=== PATIENT | female | born 1980 | race Caucasian/White ===

== ENCOUNTER 2016-07-07 00:20 | Emergency (ER) | payer SELFPAY ==
[~2016-07-07] VITALS: Ht 160 cm; Wt 80.7 kg
[~2016-07-07 00:20] MED LIST: PRENATAL1 TA1 PO; TYLENOL EXTRA500 M2 PO; [UNRECOGNIZED DRUG - OTHER] PO
[2016-07-07 00:33] VITALS: BP 102/72
--- NOTE | 2016-07-07 00:43 | NUR ---
TO ER BED 6
--- NOTE | 2016-07-07 00:58 | NUR ---
36Y F BIB SPOUSE C/O OF ANXIETY X3 DAYS. PT STATES SHE FEELS ANXIOUS WITH NO APPARENT REASON. SHE CLAIMS SHE FEEL CONFUSED TOO AT TIMES. V/S WNL. NO DISTRESS NOTED.
--- NOTE | 2016-07-07 01:18 | NUR ---
Patient being evaluated by physician at bedside.
[2016-07-07] MEDS ORDERED: LORazepam 1 MG TAB PO ONE (01:20)
--- NOTE | 2016-07-07 02:30 | NUR ---
PT STATES SHE FEELS BETTER NOW AFTER SHE TOOK A DOSE OF ATIVAN 1MG PO[address] CASEY.
--- NOTE | 2016-07-07 02:55 | NUR ---
Patient discharged with v/s stable. Written and verbal after care instructions given and explained BY DR CASEY. Patient alert, oriented and verbalized understanding of instructions. Ambulatory with steady gait. All questions addressed prior to discharge. ID band removed. Patient advised to follow up with PMD. Rx of ATIVAN given. Patient educated on indication of medication including possible reaction and side effects. Opportunity to ask questions provided and answered.
[2016-07-07 03:00] VITALS: BP 110/70
== END 2016-07-07 02:55 | disposition home or self-care (01) ==
LOC: MED 00:20
DX: F41.0 Panic disorder [episodic paroxysmal anxiety] (principal); Z88.0 Allergy status to penicillin

== ENCOUNTER 2016-08-09 07:44 | Emergency (ER) | payer SELFPAY ==
[~2016-08-09] VITALS: Ht 160 cm; Wt 83.5 kg
[~2016-08-09 07:44] MED LIST changes: +ACET500C94 PO; +PREN-234 PO; -PRENATAL1 TA1 PO; -TYLENOL EXTRA500 M2 PO; +[UNRECOGNIZED DRUG - CODE] PO; -[UNRECOGNIZED DRUG - OTHER] PO
--- NOTE | 2016-08-09 07:50 | NUR ---
PT AMBULATED TO BED 3
[2016-08-09 07:52] VITALS: BP 125/90
--- NOTE | 2016-08-09 07:54 | NUR ---
36F BIB SELF C/O CHEST "HEAVINESS" & ANXIETY X 3 WEEKS; PT DENIES PAIN AT THIS TIME; PT C/O THROAT ITCHYNESS, BUT DENIES SOB AT THIS TIME; BL LUNG SOUNDS CLEAR, RR EVEN/UNLABORED; PT A&OX4, PERRLA, C/O NAUSEA, BUT DENIES VOMITING/DIARRHEA AT THIS TIME; ABDOMEN SOFT, NON-TENDER, ACTIVE BOWEL SOUNDS X 4 QUADRANTS; SKIN IS WARM/DRY/INTACT AT THIS TIME; PT RESTING IN BED W/ HOB ELEVATED AND IN LOWEST POSITION; POSITIONED FOR COMFORT; ER MD MADE AWARE OF STATUS. WILL CONTINUE TO MONITOR.
--- NOTE | 2016-08-09 08:01 | NUR ---
Dr. Damico evaluating patient at bedside.
[2016-08-09] MEDS ORDERED: LORazepam 1 MG TAB PO ONE (08:05)
[2016-08-09] MEDS ORDERED: ONDANSETRON 4 MG ODT PO ONE (08:05)
--- NOTE | 2016-08-09 08:11 | NUR ---
PO MEDICATIONS ADMINISTERED PER ER MD DR. RANGEL ORDER; PT TOLERATED WELL; NO ACUTE DISTRESS NOTED AT THIS TIME; RR EVEN/UNLABORED; WILL CONTINUE TO MONITOR.
--- NOTE | 2016-08-09 08:12 | NUR ---
WARM BLANKET PROVIDED TO PT FOR COMFORT.
--- NOTE | 2016-08-09 08:27 | NUR ---
PT APPEARS TO BE RESTING COMFORTABLY IN BED; RR EVEN/UNLABORED; NO ACUTE DISTRESS NOTED AT THIS TIME; AT BEDSIDE.
[2016-08-09 08:43] VITALS: BP 114/72
--- NOTE | 2016-08-09 08:43 | NUR ---
Patient discharged with v/s stable. Written and verbal after care instructions given and explained. Patient verbalized understanding. Ambulatory with steady gait. All questions addressed prior to discharge. Advised to follow up with PMD.
== END 2016-08-09 08:43 | disposition home or self-care (01) ==
LOC: MED 07:44
DX: F41.9 Anxiety disorder, unspecified (principal); J06.9 Acute upper respiratory infection, unspecified; Z88.0 Allergy status to penicillin
CPT/HCPCS: 81002; 81025; 99284; S0119

== ENCOUNTER 2019-03-18 19:51 | Emergency (ER) | payer MEDICAID ==
[~2019-03-18] VITALS: Ht 160 cm; Wt 70.0 kg
[2019-03-18 19:57] VITALS: BP 112/71
--- NOTE | 2019-03-18 20:06 | NUR ---
FLU SWAB COLLECTED.
--- NOTE | 2019-03-18 20:08 | NUR ---
TRIAGE COMPLETE. VSS. RETURNED TO LOBBY WITH UPRIGHT, STEADY GAIT TO WAIT FOR BED IN ED.
--- NOTE | 2019-03-18 20:12 | NUR ---
TAKEN TO CHAIR Quevedo
--- NOTE | 2019-03-18 20:14 | NUR ---
38/F C/O MOIST COUGH X 3 DAYS WITH FEVER/CHILLS, SORE THROAT, NAUSEA AND BODY ACHES. THROAT PAIN 12/16. APPEARS IN NAD. PMH-- DENIES RX-- SELF MEDICATED WITH AMOXICILLIN (BELIEVES SHE HAS THROAT INFXN), TYLENOL NEEDED
--- NOTE | 2019-03-18 20:16 | NUR ---
PA PATEL EVALUATING PT AT BEDSIDE
[2019-03-18 20:43] VITALS: BP 112/71
--- NOTE | 2019-03-18 20:44 | NUR ---
Patient discharged with v/s stable. Written and verbal after care instructions given and explained. Patient alert, oriented and verbalized understanding of instructions. Ambulatory with steady gait. All questions addressed prior to discharge. ID band removed. Patient advised to follow up with PMD. Rx of Ibuprofen, flonase, promethazine given. Patient educated on indication of medication including possible reaction and side effects. Opportunity to ask questions provided and answered.
== END 2019-03-18 20:44 | disposition home or self-care (01) ==
LOC: MED 19:51
DX: B34.9 Viral infection, unspecified (principal); Z79.899 Other long term (current) drug therapy; Z88.0 Allergy status to penicillin
CPT/HCPCS: 87804; 99283

== ENCOUNTER 2019-06-08 22:50 | Emergency (ER) | payer SELFPAY ==
[~2019-06-08] VITALS: Ht 160 cm; Wt 68.0 kg
[2019-06-08 22:55] VITALS: BP 125/73
[2019-06-09 00:21] VITALS: BP 113/77
== END 2019-06-09 00:22 | disposition home or self-care (01) ==
LOC: MED 22:50
DX: J02.9 Acute pharyngitis, unspecified (principal); Z88.0 Allergy status to penicillin; Z79.899 Other long term (current) drug therapy
CPT/HCPCS: 87081; 87804; 99283

== ENCOUNTER 2020-06-28 03:35 | Emergency (ER) | payer MEDICAID ==
[~2020-06-28] VITALS: Ht 160 cm; Wt 68.0 kg
[2020-06-28 03:40] VITALS: BP 102/72
--- NOTE | 2020-06-28 03:40 | NUR ---
TO BED AMBULATORY
--- NOTE | 2020-06-28 03:45 | NUR ---
40 y.o moroccan speaking female presents to the ed with c/o sore throat. sore throat started yesterday and has taken ibuprofen about 30 mins ago. pt denies difficulty breathing but has dry cough. Throat has some redness and mild swelling. patient reports her throat feels like it's on fire/hot and has nausea. SKIN IS PINK/WARM/DRY; AAOX4 WITH EVEN AND STEADY GAIT; LUNGS CLEAR BL; HR EVEN AND REGULAR; PT DENIES ANY FEVER, CP, or SOB; PATIENT STATES PAIN OF 8/10 AT THIS TIME; VSS; PATIENT POSITIONED FOR COMFORT; HOB ELEVATED; BEDRAILS UP X2; BED DOWN. ER MD MADE AWARE OF PT STATUS. PMH: N/A ALLERGIES: Penicillins
--- NOTE | 2020-06-28 03:50 | NUR ---
md at bedside, examining patient
[2020-06-28] MEDS ORDERED: AZITHROMYCIN 250 MG TAB PO ONE (03:55)
[2020-06-28] MEDS ORDERED: KETOROLAC 30 MG/ML VIAL IM ONE (03:55)
[2020-06-28] MEDS ORDERED: PRED20TA5 PO (04:08)
[2020-06-28] MEDS ORDERED: AZIT250T3 PO (04:08)
--- NOTE | 2020-06-28 04:14 | NUR ---
Pt denied urine for test as pt is on her period
--- NOTE | 2020-06-28 04:16 | NUR ---
strep swab sent to lab, received by lucía paulino
[2020-06-28 04:20] VITALS: BP 102/72
--- NOTE | 2020-06-28 04:21 | NUR ---
Patient discharged with v/s stable. Written and verbal after care instructions given and explained. Patient alert, oriented and verbalized understanding of instructions. Ambulatory with steady gait. All questions addressed prior to discharge. ID band removed. Patient advised to follow up with PMD. Rx of Zithromax and Prednisone given. Patient educated on indication of medication including possible reaction and side effects. Opportunity to ask questions provided and answered.
== END 2020-06-28 04:21 | disposition home or self-care (01) ==
LOC: MED 03:35
DX: J02.9 Acute pharyngitis, unspecified (principal); Z88.0 Allergy status to penicillin; Z79.899 Other long term (current) drug therapy
CPT/HCPCS: 81025; 87081; 96372; 99283; J1885

== ENCOUNTER 2020-09-30 18:03 | Emergency (ER) | payer SELFPAY ==
[~2020-09-30] VITALS: Ht 160 cm; Wt 67.1 kg
[~2020-09-30 18:03] MED LIST changes: +AZIT250T3 PO; +PRED20TA5 PO
--- NOTE | 2020-09-30 18:10 | NUR ---
Patient ambulated with steady gait to bed 1.
--- NOTE | 2020-09-30 18:15 | NUR ---
PT IS A 40 Y.O. FEMALE BIB SELF W/ CC HEADACHE 9/10 RADIATING TO THE RIGHT SIDE AND ABD PAIN. PT STATES SHE HAS NAUSEA AND LOSS OF TASTE X 2 WEEKS. PT TOOK IBUPROFEN WITH MINIMAL RELIEF. PT STATES SHE RECEIVED COVID POSITIVE RESULT AFTER COMING HERE A WEEK AGO. PT DENIES FEVER OR CHILLS. DENIES PMH. ALLERGY TO PENICILLIN.
[2020-09-30 18:24] VITALS: BP 120/74
[2020-09-30] MEDS ORDERED: KETOROLAC 60 MG/2 ML VIAL IM ONE (18:40)
[2020-09-30] MEDS ORDERED: PROCHLORPERAZINE 10 MG/2 ML VIAL IM ONE (18:40)
[2020-09-30] MEDS ORDERED: diphenhydrAMINE 50 MG/ML VIAL IM ONE (18:40)
--- NOTE | 2020-09-30 19:00 | NUR ---
PT STATES THAT THE HEADACHE HAS IMPROVED. PT IS STABLE AT THIS TIME. WILL CONTINUE TO MONITOR.
[2020-09-30 19:05] VITALS: BP 120/74
== END 2020-09-30 19:05 | disposition home or self-care (01) ==
LOC: MED 18:03
DX: R51.9 Headache, unspecified (principal)
CPT/HCPCS: 96372; 99284; J0780; J1200; J1885

== ENCOUNTER 2021-04-06 18:56 | Emergency (ER) | payer SELFPAY ==
[~2021-04-06] VITALS: Ht 160 cm; Wt 77.1 kg
[2021-04-06 19:14] VITALS: BP 116/56
--- NOTE | 2021-04-06 19:19 | NUR ---
PT SENT TO LOBBY
[2021-04-06 22:51] VITALS: BP 116/56
== END 2021-04-06 22:51 | disposition home or self-care (01) ==
LOC: MED 18:56
DX: O9A.212 Injury, poisoning and certain other consequences of external causes complicating pregnancy, second trimester (principal); O26.892 Other specified pregnancy related conditions, second trimester; R10.84 Generalized abdominal pain; Z3A.15 15 weeks gestation of pregnancy; W19.XXXA Unspecified fall, initial encounter; Y93.89 Activity, other specified; Y92.89 Other specified places as the place of occurrence of the external cause; Y99.8 Other external cause status
CPT/HCPCS: 76817; 99284; Q0092